=== PATIENT | female | born 1965 | race Caucasian/White ===

== ENCOUNTER 2018-07-22 00:03 | Emergency (ER) | payer MEDICAID ==
[~2018-07-22] VITALS: Ht 152.4 cm; Wt 83.0 kg
[2018-07-22 00:09] VITALS: BP 103/80
[2018-07-22] MEDS ORDERED: FLUORESCEIN SODIUM 1MG/STRIP OP ONE (01:30)
[2018-07-22] MEDS ORDERED: TETRACAINE 0.5% OPHTH DROPS 4ML OP ONE (01:30)
== END 2018-07-22 02:17 | disposition left against medical advice (07) ==
LOC: ER 00:03
DX: H57.13 Ocular pain, bilateral (principal); G51.8 Other disorders of facial nerve; R21 Rash and other nonspecific skin eruption; Z88.0 Allergy status to penicillin; Z98.890 Other specified postprocedural states
CPT/HCPCS: 99281

== ENCOUNTER 2018-12-20 15:51 | Emergency (ER) | payer MEDICARE, MEDICAID ==
[~2018-12-20] VITALS: Ht 165.1 cm; Wt 71.0 kg
[2018-12-20] MEDS ORDERED: PREDNISONE 20MG TABLET PO ONE (19:00)
[2018-12-20] MEDS ORDERED: FAMOTIDINE 20MG TABLET PO ONE (19:00)
[2018-12-20] MEDS: DIPHENHYDRAMINE 25MG CAPSULE PO ONE ×2 (19:10→19:17)
[2018-12-20 20:14] VITALS: BP 100/67
== END 2018-12-20 20:16 | disposition home or self-care (01) ==
LOC: ER 15:51
DX: T78.49XA Other allergy, initial encounter (principal); X58.XXXA Exposure to other specified factors, initial encounter; F41.9 Anxiety disorder, unspecified; F32.9 Major depressive disorder, single episode, unspecified; F17.200 Nicotine dependence, unspecified, uncomplicated; Z96.659 Presence of unspecified artificial knee joint; Z88.0 Allergy status to penicillin
CPT/HCPCS: 99283; J7512; Q0163

== ENCOUNTER 2022-03-29 16:08 | Emergency (ER) | payer MEDICARE, MEDICAID ==
[~2022-03-29] VITALS: Ht 152.4 cm; Wt 80.0 kg
[2022-03-29 16:18] VITALS: BP 149/74
[2022-03-29] MEDS ORDERED: LORAZEPAM 1MG TABLET PO ONE (21:15)
[2022-03-29] MEDS ORDERED: SULF1TAB48 MT (21:36)
== END 2022-03-30 00:42 | disposition home or self-care (01) ==
LOC: ER 16:08
DX: L97.128 Non-pressure chronic ulcer of left thigh with other specified severity (principal); F41.9 Anxiety disorder, unspecified; F32.A Depression, unspecified; M79.7 Fibromyalgia; F17.210 Nicotine dependence, cigarettes, uncomplicated; Z96.659 Presence of unspecified artificial knee joint; Z88.0 Allergy status to penicillin
CPT/HCPCS: 99283

== ENCOUNTER 2022-04-01 10:57 | Emergency (ER) | payer MEDICARE, MEDICAID ==
[~2022-04-01] VITALS: Ht 160 cm; Wt 77.0 kg
[~2022-04-01 10:57] MED LIST: SULF1TAB48 MT
[2022-04-01 10:58] VITALS: BP 138/90
[2022-04-01] MEDS ORDERED: LORAZEPAM 1MG TABLET PO ONE (11:30)
[2022-04-01 11:59] LABS: CLARITY URINE CLEAR (CLEAR); COLOR URINE YELLOW (YELLOW); KETONES URINE NEGATIVE (NEGATIVE); LEUKOCYTE ESTERASE URINE 1+ (NEGATIVE); NITRITE URINE NEGATIVE (NEGATIVE); OCCULT BLOOD URINE NEGATIVE (NEGATIVE); PROTEIN URINE NEGATIVE (NEGATIVE); SPECIFIC GRAVITY URINE 1.002 (1.005-1.030); UROBILINOGEN URINE 0.2 E.U./dL (0.2-1.0)
[2022-04-01] MEDS ORDERED: NITR-87 MT (12:58)
[2022-04-01] MEDS ORDERED: LORA-250 PO (13:00)
== END 2022-04-01 13:53 | disposition home or self-care (01) ==
LOC: ER 10:57
DX: F41.9 Anxiety disorder, unspecified (principal); N39.0 Urinary tract infection, site not specified; M79.7 Fibromyalgia; F32.A Depression, unspecified; Z96.659 Presence of unspecified artificial knee joint; Z88.0 Allergy status to penicillin
CPT/HCPCS: 81003; 99282

== ENCOUNTER 2022-04-04 16:16 | Emergency (ER) | payer MEDICARE, MEDICAID ==
[~2022-04-04] VITALS: Ht 152.4 cm; Wt 77.0 kg
[~2022-04-04 16:16] MED LIST changes: +LORA-250 PO; +NITR-87 MT
[2022-04-04] MEDS ORDERED: LORAZEPAM 0.5MG TABLET PO ONE (20:15)
[2022-04-04 21:20] VITALS: BP 145/67
== END 2022-04-04 21:22 | disposition home or self-care (01) ==
LOC: ER 16:16
DX: Z48.00 Encounter for change or removal of nonsurgical wound dressing (principal); L03.116 Cellulitis of left lower limb; K64.9 Unspecified hemorrhoids; F41.9 Anxiety disorder, unspecified; Z88.0 Allergy status to penicillin; Z98.890 Other specified postprocedural states
CPT/HCPCS: 99283